=== PATIENT | male | born 1945 | race Caucasian/White ===

== ENCOUNTER 2021-01-27 10:26 | Day surgery (SDC) | payer MEDICARE ==
[~2021-01-27] VITALS: Ht 180.3 cm; Wt 119.0 kg
[2021-01-27] VITALS (11 sets, daily range): BP systolic 124–180; BP diastolic 47–96
[2021-01-27] MEDS ORDERED: LORazepam 0.5 MG tablet PO PRN (10:55)
[2021-01-27] MEDS ORDERED: normal saline 1,000 ML IV SCH (10:55)
[2021-01-27] MEDS ORDERED: diphenhydrAMINE 25mg capsule PO PRN (10:55)
[2021-01-27] MEDS ORDERED: nitroGLYCERIN 0.4mg SUBLingual tab SL PRN (10:55)
[2021-01-27 11:49] LABS: BASOPHILS # (AUTO) 0.1 X10'3 (0-0.2); EOSINOPHILS # (AUTO) 0.4 X10'3 (0-0.9); EOSINOPHILS % (AUTO) 4.4 % (0-6); HEMATOCRIT 40.4 % (42.0-52.0); HEMOGLOBIN 13.8 g/dl (14.0-17.9); LYMPHOCYTES # (AUTO) 2.6 X10'3 (1.1-4.8); LYMPHOCYTES % (AUTO) 31.5 % (21-51); MEAN CORPUSCULAR HEMOGLOBIN 28.3 PG (27.0-31.0); MEAN CORPUSCULAR HGB CONC 34.2 g/dL (33.0-36.5); MEAN CORPUSCULAR VOLUME 82.8 FL (78-98); MEAN PLATELET VOLUME 7.8 FL (7.4-10.4); MONOCYTES # (AUTO) 1.5 X10'3 (0-0.9); MONOCYTES % (AUTO) 18.4 % (2-12); NEUTROPHILS # (AUTO) 3.7 X10'3 (1.8-7.7); NEUTROPHILS % (AUTO) 44.7 % (42-75); PLATELET COUNT 344 X10'3 (140-440); RED BLOOD COUNT 4.88 X10'6 (4.70-6.10); RED CELL DISTRIBUTION WIDTH 16.7 % (11.5-14.5); WHITE BLOOD COUNT 8.4 X10'3 (4.5-11.0)
[2021-01-27 11:50] LABS: ALBUMIN 3.4 G/DL (3.4-5.0); ANION GAP 11 (8-16); BLOOD UREA NITROGEN 12 MG/DL (7-18); BUN/CREATININE RATIO 12.2 (5.4-32.0); CALCIUM 9.2 MG/DL (8.5-10.1); CHLORIDE 102 MMOL/L (99-107); CREATINE KINASE 89 U/L (39-308); CREATININE 0.98 MG/DL (0.60-1.10); GLUCOSE 160 MG/DL (70-104); SODIUM 137 MMOL/L (135-145); eGFR 74 ML/MIN
[2021-01-27 11:56] LABS: PARTIAL THROMBOPLASTIN TIME 29 SECONDS (22-32)
[2021-01-27] MEDS ORDERED: PRED5DRO23 EACHEYE (11:56)
[2021-01-27] MEDS ORDERED: SERT-153 PO (11:56)
[2021-01-27] MEDS ORDERED: MULT-1085 PO (11:56)
[2021-01-27] MEDS ORDERED: ALBU8.5H17 IH (11:56)
[2021-01-27] MEDS ORDERED: fentaNYL/PF 50MCG/1 ML 2ML syringe ONE ×2 (12:50→13:39)
[2021-01-27] MEDS ORDERED: midazolam 1 mg/ML 2ml injection ONE (12:50)
[2021-01-27] MEDS ORDERED: iohexol 350MG/ML 100ml bottle IV ONE (12:50)
[2021-01-27] MEDS ORDERED: iohexol 350 MG/ML 50ML vial IV ONE ×3 (12:50→13:55)
[2021-01-27] MEDS ORDERED: nitroGLYCERIN-Tridil 50MG/D5W 250 ML IV ONE (12:50)
[2021-01-27] MEDS ORDERED: LIDOcaine 1% (10mg/ml)w/preservative injection 20ml MDV ONE (12:51)
[2021-01-27 12:59] LABS: TOTAL CELLS COUNTED 100
[2021-01-27 13:00] LABS: ANISOCYTOSIS 1+; PLATELET ESTIMATE NORMAL
[2021-01-27] MEDS ORDERED: HYDROcodone/acetaminophen 5mg/325mg tablet PO PRN (14:35)
[2021-01-27] MEDS ORDERED: ondansetron/PF 4mg/2ml inj IV PRN (14:35)
[2021-01-27] MEDS ORDERED: HYDROcodone/acetaminophen 10/325mg tab PO PRN (14:35)
[2021-01-27] MEDS ORDERED: OXAZEpam 15mg capsule PO PRN (14:35)
[2021-01-27] MEDS ORDERED: proCHLORperazine 10 MG/2 ml inj IV PRN (14:35)
[2021-02-01 12:00] LABS: ALLEN'S TEST POSITIVE
[2021-02-01 12:02] LABS: ABG BASE EXCESS -2.1 mmol/L (-2.0-2.0); ABG HCO3 22.2 mmol/L (22.0-26.0); ABG PCO2 (T) 36.7 mmHg (35.0-48.0); ABG PO2 (T) 67.4 mmHg (75.0-100.0); FCOHb 0.4 % (0.0-3.9); FMetHb 0.4 % (0.0-1.5); FO2Hb 93.7 % (94-97); TOTAL HEMOGLOBIN 14.2 G/dl (14.0-18.0)
[2021-02-01 12:03] LABS: ABG OXYGEN SATURATION 94.5 % (94-97)
== END 2021-01-27 20:15 | disposition home or self-care (01) ==
LOC: SSTAY O 10:26
PROVIDERS: ATTEND Internal Medicine Cardiovascular Disease
DX: R94.39 Abnormal result of other cardiovascular function study (principal); I25.10 Atherosclerotic heart disease of native coronary artery without angina pectoris; I10 Essential (primary) hypertension; F32.9 Major depressive disorder, single episode, unspecified; E78.5 Hyperlipidemia, unspecified; M19.90 Unspecified osteoarthritis, unspecified site; J44.9 Chronic obstructive pulmonary disease, unspecified; E66.9 Obesity, unspecified; Z68.36 Body mass index [BMI] 36.0-36.9, adult; Z79.899 Other long term (current) drug therapy; Z79.01 Long term (current) use of anticoagulants; Z88.5 Allergy status to narcotic agent; Z90.49 Acquired absence of other specified parts of digestive tract; Z98.890 Other specified postprocedural states; Z86.16 Personal history of COVID-19
CPT/HCPCS: 36415; 36600; 71046; 80048; 82550; 82803; 85018; 85025; 85610; 85730; 86920; 93005; 93458; 93567; 93880; 94010; 99152; 99153; C1760; C1769; J1644; J2001; J2250; J3010; J7030; Q0163; Q9967; 85007; 86885; 86900; 86901; 93459; A4620; A6258; J3490

== ENCOUNTER 2021-02-01 08:00 | Outpatient (CLI) | payer MEDICARE ==
[~2021-02-01] VITALS: Ht 180.3 cm; Wt 118.8 kg
[2021-02-01 05:50] VITALS: BP 140/74
[2021-02-01 07:02] VITALS: BP_SYST 140
[~2021-02-01 08:00] MED LIST: ALBU8.5H17 IH; Insulin Reg/NS 100units/100mL 100 ML IV SCH; MULT-1085 PO; PRED5DRO23 EACHEYE; SERT-153 PO; ceFAZolin 1000mg inj ONE; ceFAZolin 2gm in dextrose, iso 50 ML IV ONE; dextrose 50%-water 50ml dispensing syringe IV PRN; epiNEPHrine 1 mg/ml inj ONE; famotidine 20mg tablet PO ONE; gabapentin 400mg capsule PO ONE; insulin Lispro (HumaLOG) vial - multi-dose SQ PRN; ipratropium/albuterol 3ml nebule NEB PRN; metoprolol tartrate 12.5mg (1/2 tablet) PO ONE; mupirocin 2% nasal ointment 1gm UD NS SCH; ringers solution, lacted 1,000 ML IV SCH; vancomycin 1,500 MG in NS 300ml IV soln IV ONE
[2021-02-01] MEDS ORDERED: LORazepam 2 mg/ml vial IV ONE (08:25)
== END 2021-02-01 23:00 | disposition home or self-care (01) ==
LOC: LAB 08:00 → EDSTATUS 09:30 → LAB 23:00
DX: Z01.812 Encounter for preprocedural laboratory examination (principal); U07.1 COVID-19
CPT/HCPCS: 36415; 86885; 86900; 86901; 86920; 87635; 93005; 93971; J0171; J0690; J1815; J3370; J7040; J7120

== ENCOUNTER 2021-02-22 08:00 | Inpatient (IN) | payer MEDICARE ==
[2021-02-18 14:34] LABS: BASOPHILS # (AUTO) 0.1 X10'3 (0-0.2); BASOPHILS % (AUTO) 1.4 % (0-1); EOSINOPHILS # (AUTO) 0.3 X10'3 (0-0.9); EOSINOPHILS % (AUTO) 2.9 % (0-6); LYMPHOCYTES # (AUTO) 2.5 X10'3 (1.1-4.8); LYMPHOCYTES % (AUTO) 25.6 % (21-51); MEAN CORPUSCULAR HEMOGLOBIN 28.5 PG (27.0-31.0); MEAN CORPUSCULAR HGB CONC 34.3 g/dL (33.0-36.5); MEAN CORPUSCULAR VOLUME 83.1 FL (78-98); MEAN PLATELET VOLUME 7.7 FL (7.4-10.4); MONOCYTES # (AUTO) 1.5 X10'3 (0-0.9); MONOCYTES % (AUTO) 15.1 % (2-12); NEUTROPHILS # (AUTO) 5.3 X10'3 (1.8-7.7); PRE OP HEMATOCRIT 42.3 % (42.0-52.0); PRE OP HEMOGLOBIN 14.5 g/dL (14.0-17.9); PRE OP PLATELET COUNT 358 X10'3 (140-440); RED BLOOD COUNT 5.09 X10'6 (4.70-6.10); RED CELL DISTRIBUTION WIDTH 16.8 % (11.5-14.5)
[2021-02-18 14:51] LABS: PRE OP INR 1.1 INR; PRE OP PROTIME 10.9 SECONDS (9.0-12.0)
[2021-02-18 14:52] LABS: ALBUMIN 3.5 G/DL (3.4-5.0); ALBUMIN/GLOBULIN RATIO 0.6 (1.1-1.5); ALKALINE PHOSPHATASE 65 IU/L (46-116); BLOOD UREA NITROGEN 19 MG/DL (7-18); BUN/CREATININE RATIO 18.3 (5.4-32.0); CALCIUM 9.4 MG/DL (8.5-10.1); CHLORIDE 97 MMOL/L (99-107); CREATININE 1.04 MG/DL (0.60-1.10); PRE OP ALT 54 U/L (30-65); PRE OP ANION GAP 12 (8-16); PRE OP AST 38 U/L (10-37); PRE OP BILIRUB, TOTAL 0.6 MG/DL (0.0-1.0); PRE OP POTASSIUM 3.8 MMOL/L (3.4-5.1); PRE OP SODIUM 131 MMOL/L (135-145); TOTAL CARBON DIOXIDE 22.3 MMOL/L (24-32); TOTAL PROTEIN 9.7 G/DL (6.4-8.2); eGFR 69 ML/MIN
[2021-02-18 14:54] LABS: PRE OP GLUCOSE 201 MG/DL (70-104)
[2021-02-18 15:02] LABS: HEMOGLOBIN A1C 7.4 % (4.5-6.2)
[2021-02-18 15:11] LABS: CLARITY,URINE CLEAR (Clear); COLOR,URINE YELLOW (Yellow); GLUCOSE, URINE NEGATIVE (Neg); KETONES,URINE NEGATIVE (Neg); LEUKOCYTE ESTERASE ,URINE NEGATIVE (Neg); NITRITES, URINE NEGATIVE (Neg); OCCULT BLOOD,URINE NEGATIVE (Neg); PROTEIN,URINE NEGATIVE (Neg); UA COLLECTION TYPE CLN CATCH MIDSTREAM; UROBILINOGEN,URINE 0.2 E.U/dL (0.2-1.0)
[2021-02-18 15:52] LABS: TOTAL CELLS COUNTED 100
[2021-02-18 15:53] LABS: ANISOCYTOSIS 1+; LARGE PLATELETS FEW; PLATELET ESTIMATE NORMAL
[~2021-02-22] VITALS: Ht 180.3 cm; Wt 122.3 kg
[2021-02-22 06:44] LABS: ABG HCO3 24.5 mmol/L (22.0-26.0); ABG OXYGEN SATURATION 96.6 % (94-97); ABG PCO2 (T) 32.5 mmHg (35.0-48.0); ABG PO2 (T) 73.4 mmHg (75.0-100.0); ALLEN'S TEST POSITIVE; FCOHb 1.1 % (0.0-3.9); FMetHb 0.2 % (0.0-1.5); FO2Hb 95.3 % (94-97); TOTAL HEMOGLOBIN 15.3 G/dl (14.0-18.0)
[~2021-02-22 08:00] MED LIST changes: +DOCUMENT DATE & TIME OF BETA-BLOCKER PO ONE; +LORazepam 2 mg/ml vial IV PRN; +VANCOMYCIN INJ 1000 MG in NORMAL SALINE 250ml IV.SOLN IV ONE; +albuterol 2.5 MG/3 ML nebule NEB ONE; -ceFAZolin 1000mg inj ONE; -epiNEPHrine 1 mg/ml inj ONE; +gabapentin 300mg capsule PO ONE; -gabapentin 400mg capsule PO ONE; -insulin Lispro (HumaLOG) vial - multi-dose SQ PRN; +insulin Lispro (HumaLOG) vial - multi-dose SQ SCH; -ipratropium/albuterol 3ml nebule NEB PRN; -vancomycin 1,500 MG in NS 300ml IV soln IV ONE
[2021-03-01] VITALS (19 sets, daily range): BP systolic 98–149; BP diastolic 46–75
[2021-03-01] MEDS ORDERED: LORazepam 2 mg/ml vial IV PRN (05:30)
[2021-03-01] MEDS ORDERED: famotidine 20mg tablet PO ONE (05:30)
[2021-03-01] MEDS ORDERED: albuterol 2.5 MG/3 ML nebule NEB ONE (05:30)
[2021-03-01] MEDS ORDERED: vancomycin 1,500 MG in NS 300ml IV soln IV ONE (05:30)
[2021-03-01] MEDS ORDERED: Insulin Reg/NS 100units/100mL 100 ML IV SCH (05:30)
[2021-03-01] MEDS ORDERED: metoprolol tartrate 12.5mg (1/2 tablet) PO ONE (05:30)
[2021-03-01] MEDS ORDERED: gabapentin 300mg capsule PO ONE (05:30)
[2021-03-01] MEDS ORDERED: ringers solution, lacted 1,000 ML IV SCH (05:30)
[2021-03-01] MEDS ORDERED: mupirocin 2% nasal ointment 1gm UD NS SCH (05:30)
[2021-03-01] MEDS ORDERED: ceFAZolin 2gm in dextrose, iso 50 ML IV ONE (05:30)
[2021-03-01] MEDS ORDERED: ceFAZolin 1000mg inj ONE (05:39)
[2021-03-01] MEDS ORDERED: epiNEPHrine 1 mg/ml inj ONE ×2 (05:39→06:27)
[2021-03-01] MEDS ORDERED: LIDOcaine 2% (20mg/ml) 5ml vial ONE (07:39)
[2021-03-01] MEDS ORDERED: propofol inj 20 ML IV ONE (07:39)
[2021-03-01] MEDS ORDERED: fentaNYL /PF 50mcg/ml 5ml ampule ONE ×2 (07:39)
[2021-03-01] MEDS ORDERED: MIDAZolam 1mg/ml 10ml vial ONE (07:39)
[2021-03-01] MEDS: ipratropium/albuterol 3ml nebule IH SCH ×5 (07:40→22:50)
[2021-03-01] MEDS ORDERED: rocuronium 10mg/ml inj IV ONE ×3 (07:40)
[2021-03-01] MEDS ORDERED: papaverine 30 mg/ml 2ml inj. ONE (08:00)
[2021-03-01] MEDS ORDERED: sodium bicarbonate (8.4%) 1 mEq/ml syringe ONE (08:00)
[2021-03-01] MEDS ORDERED: heparin 10,000 units/1 ML INJ ONE (08:00)
[2021-03-01] MEDS ORDERED: heparin 10,000 units/1 ML INJ IR ONE (08:00)
[2021-03-01] MEDS ORDERED: phenylephrine 10mg/ml inj. ONE (08:00)
[2021-03-01] MEDS ORDERED: methylPREDNISolone sod succ 1000mg vial ONE (08:00)
[2021-03-01] MEDS ORDERED: aminocaproic acid 250 MG/1 ML inj. ONE (08:00)
[2021-03-01] MEDS ORDERED: papaverine 30 mg/ml 2ml inj. IA ONE (08:00)
[2021-03-01] MEDS ORDERED: albumin (Human) 5% 250ml 250 ML IV ONE ×2 (08:38→08:41)
[2021-03-01] MEDS ORDERED: dexamethasone sod phosphate 4mg/ml inj. ONE ×2 (08:41→08:59)
[2021-03-01] MEDS ORDERED: ePHEDrine 50MG/ML INJ. ONE (08:59)
[2021-03-01] MEDS ORDERED: Neutra Phos packet PO PRN (10:05)
[2021-03-01] MEDS ORDERED: acetaminophen 325mg tablet PO PRN ×2 (10:05)
[2021-03-01] MEDS ORDERED: potassium Cl 20 mEq SR tablet PO PRN (10:05)
[2021-03-01] MEDS ORDERED: morphine 4 MG/ML inj SYRINge IV PRN (10:05)
[2021-03-01] MEDS ORDERED: sodium chloride 0.45% 1,000 ML IV SCH (10:05)
[2021-03-01] MEDS ORDERED: sodium phosphate inj. 30 MMOL in dextrose 5%-water 250 ML IV PRN (10:05)
[2021-03-01] MEDS: Insulin Reg/NS 100units/100mL 100 ML IV SCH ×2 (10:05→20:49)
[2021-03-01] MEDS ORDERED: potassium Cl 40MEQ/1/2NS 520ml 520 ML IV PRN (10:05)
[2021-03-01] MEDS ORDERED: pantoprazole 40 MG vial IV ONE (10:05)
[2021-03-01] MEDS ORDERED: magnesium 4gm in 100ml NS 100 ML IV PRN (10:05)
[2021-03-01] MEDS ORDERED: insulin glargine (Lantus) pen - multi-dose SQ PRN (10:05)
[2021-03-01] MEDS ORDERED: niCARDipine-NS 40mg/200ml IVPB 200 ML IV PRN (10:05)
[2021-03-01] MEDS ORDERED: potassium Cl 20mEq/100mL bag 100 ML IV PRN (10:05)
[2021-03-01] MEDS ORDERED: metoclopramide 5 mg/ml inj IV PRN (10:05)
[2021-03-01] MEDS ORDERED: sodium phosphate inj. 15 MMOL in dextrose 5%-water 250 ML IV PRN (10:05)
[2021-03-01] MEDS ORDERED: bisacodyl 10mg suppository rectal RC PRN (10:05)
[2021-03-01] MEDS ORDERED: dextrose 50%-water 50ml dispensing syringe IV PRN (10:05)
[2021-03-01] MEDS ORDERED: magnesium citrate 296ml oral solution PO PRN (10:05)
[2021-03-01] MEDS ORDERED: albumin (Human) 5% 250ml 250 ML IV PRN (10:05)
[2021-03-01] MEDS ORDERED: potassium CL 10mEq/100ml bag 100 ML IV PRN (10:05)
[2021-03-01] MEDS ORDERED: ondansetron/PF 4mg/2ml inj IV PRN (10:05)
[2021-03-01] MEDS ORDERED: nitroGLYCERIN-Tridil 50MG/D5W 250 ML IV SCH (10:05)
[2021-03-01] MEDS ORDERED: mineral oil 133ml enema RC PRN (10:05)
[2021-03-01] MEDS ORDERED: magnesium hydroxide 30ml (MOM) UD suspension PO PRN (10:05)
[2021-03-01] MEDS ORDERED: potassium Cl 40MEQ/250ML bag 250 ML IV PRN (10:05)
[2021-03-01] MEDS ORDERED: NORepinephrine 8mg/ 250ml NS 250 ML IV PRN (10:05)
[2021-03-01 11:00] LABS: BASOPHILS # (AUTO) 0.1 X10'3 (0-0.2); BASOPHILS % (AUTO) 0.5 % (0-1); EOSINOPHILS # (AUTO) 0.1 X10'3 (0-0.9); EOSINOPHILS % (AUTO) 0.5 % (0-6); HEMATOCRIT 35.8 % (42.0-52.0); HEMOGLOBIN 11.9 g/dl (14.0-17.9); LYMPHOCYTES # (AUTO) 1.8 X10'3 (1.1-4.8); LYMPHOCYTES % (AUTO) 8.5 % (21-51); MEAN CORPUSCULAR HEMOGLOBIN 27.8 PG (27.0-31.0); MEAN CORPUSCULAR HGB CONC 33.3 g/dL (33.0-36.5); MEAN CORPUSCULAR VOLUME 83.5 FL (78-98); MEAN PLATELET VOLUME 7.7 FL (7.4-10.4); MONOCYTES # (AUTO) 1.2 X10'3 (0-0.9); MONOCYTES % (AUTO) 5.7 % (2-12); NEUTROPHILS % (AUTO) 84.8 % (42-75); PLATELET COUNT 290 X10'3 (140-440); RED BLOOD COUNT 4.28 X10'6 (4.70-6.10); RED CELL DISTRIBUTION WIDTH 16.2 % (11.5-14.5); WHITE BLOOD COUNT 21.2 X10'3 (4.5-11.0)
[2021-03-01 11:05] LABS: PARTIAL THROMBOPLASTIN TIME 31 SECONDS (22-32)
[2021-03-01 11:08] LABS: ALANINE AMINOTRANSFERASE 41 U/L (12-78); ALBUMIN 2.9 G/DL (3.4-5.0); ALBUMIN/GLOBULIN RATIO 0.6 (1.1-1.5); ALKALINE PHOSPHATASE 50 IU/L (46-116); ANION GAP 10 (8-16); ASPARTATE AMINO TRANSFERASE 31 U/L (10-37); BILIRUBIN,TOTAL 0.4 MG/DL (0.1-1.0); BLOOD UREA NITROGEN 11 MG/DL (7-18); CALCIUM 7.9 MG/DL (8.5-10.1); CHLORIDE 105 MMOL/L (99-107); GLUCOSE 218 MG/DL (70-104); POTASSIUM 3.7 MMOL/L (3.5-5.1); SODIUM 139 MMOL/L (135-145); TOTAL CARBON DIOXIDE 24.4 MMOL/L (24-32); TOTAL PROTEIN 7.6 G/DL (6.4-8.2); eGFR 72 ML/MIN
[2021-03-01 11:09] LABS: MAGNESIUM 1.7 MG/DL (1.5-2.4); PHOSPHORUS 3.4 MG/DL (2.3-4.5)
[2021-03-01] MEDS: morphine 4 MG/ML inj SYRINge IV PRN (11:15)
[2021-03-01 11:30] LABS: PLATELET ESTIMATE NORMAL; TOTAL CELLS COUNTED 100
[2021-03-01 11:31] LABS: ANISOCYTOSIS 1+
--- NOTE | 2021-03-01 13:01 | NUR ---
CABG consult: Pt s/p CABG x2 today. Would benefit from nutrition therapy education once more stable this admit. Will continue to monitor. Addendum: 03/01/21 at [address] Amended: Links added.
[2021-03-01] MEDS: gabapentin 300mg capsule PO SCH ×2 (13:03→20:39)
[2021-03-01] MEDS: ketorolac tromethamine 15mg/ml inj. IV SCH ×2 (14:23→20:39)
[2021-03-01] MEDS: magnesium 2GM in 50ml NS 50 ML IV PRN (14:42)
[2021-03-01] MEDS: ceFAZolin/D5W- 1GM premix 50 ML IV SCH (15:56)
[2021-03-01 17:09] LABS: BASOPHILS % (AUTO) 0.2 % (0-1); EOSINOPHILS % (AUTO) 0.1 % (0-6); HEMOGLOBIN 11.4 g/dl (14.0-17.9); LYMPHOCYTES # (AUTO) 0.5 X10'3 (1.1-4.8); LYMPHOCYTES % (AUTO) 2.8 % (21-51); MEAN CORPUSCULAR HEMOGLOBIN 27.9 PG (27.0-31.0); MEAN CORPUSCULAR HGB CONC 33.4 g/dL (33.0-36.5); MEAN CORPUSCULAR VOLUME 83.6 FL (78-98); MEAN PLATELET VOLUME 7.6 FL (7.4-10.4); MONOCYTES # (AUTO) 1.4 X10'3 (0-0.9); MONOCYTES % (AUTO) 7.9 % (2-12); NEUTROPHILS # (AUTO) 15.5 X10'3 (1.8-7.7); PLATELET COUNT 302 X10'3 (140-440); RED BLOOD COUNT 4.07 X10'6 (4.70-6.10); RED CELL DISTRIBUTION WIDTH 16.1 % (11.5-14.5); WHITE BLOOD COUNT 17.4 X10'3 (4.5-11.0)
[2021-03-01 17:32] LABS: ALBUMIN 3.1 G/DL (3.4-5.0); ANION GAP 10 (8-16); BLOOD UREA NITROGEN 9 MG/DL (7-18); BUN/CREATININE RATIO 9.1 (5.4-32.0); CALCIUM 7.9 MG/DL (8.5-10.1); CHLORIDE 106 MMOL/L (99-107); CREATININE 0.99 MG/DL (0.60-1.10); GLUCOSE 147 MG/DL (70-104); MAGNESIUM 2.9 MG/DL (1.5-2.4); PHOSPHORUS 2.9 MG/DL (2.3-4.5); POTASSIUM 4.3 MMOL/L (3.5-5.1); SODIUM 139 MMOL/L (135-145); TOTAL CARBON DIOXIDE 23.1 MMOL/L (24-32); eGFR 73 ML/MIN
--- NOTE | 2021-03-01 18:10 | NUR ---
Patient in room ICU 2041. I have received report from Penny FARIA and had the opportunity to ask questions and assume patient care.
[2021-03-01] MEDS: HYDROcodone/acetaminophen 10/325mg tab PO PRN (18:57)
[2021-03-01] MEDS: vancomycin/NS 1 GM ADD-VANTAGE 250 ML IV SCH (20:38)
[2021-03-01] MEDS: sennosides/docusate sodium tablet PO SCH (20:39)
[2021-03-01] MEDS: atorvastatin 10mg tablet PO SCH (20:39)
[2021-03-01] MEDS: mupirocin 2% nasal ointment 1gm UD NS SCH (20:39)
[2021-03-02] VITALS (24 sets, daily range): BP systolic 91–159; BP diastolic 41–88
[2021-03-02] MEDS: ceFAZolin/D5W- 1GM premix 50 ML IV SCH ×4 (00:45→23:59)
[2021-03-02] MEDS: ketorolac tromethamine 15mg/ml inj. IV SCH ×2 (02:21→07:59)
[2021-03-02] MEDS: ipratropium/albuterol 3ml nebule IH SCH ×6 (03:11→23:59)
[2021-03-02 03:29] LABS: BASOPHILS # (AUTO) 0.1 X10'3 (0-0.2); BASOPHILS % (AUTO) 0.4 % (0-1); EOSINOPHILS % (AUTO) 0 % (0-6); HEMATOCRIT 34.2 % (42.0-52.0); HEMOGLOBIN 11.5 g/dl (14.0-17.9); LYMPHOCYTES % (AUTO) 6.6 % (21-51); MEAN CORPUSCULAR HEMOGLOBIN 28.1 PG (27.0-31.0); MEAN CORPUSCULAR HGB CONC 33.7 g/dL (33.0-36.5); MEAN CORPUSCULAR VOLUME 83.5 FL (78-98); MEAN PLATELET VOLUME 8.3 FL (7.4-10.4); MONOCYTES # (AUTO) 1.9 X10'3 (0-0.9); MONOCYTES % (AUTO) 12.8 % (2-12); NEUTROPHILS # (AUTO) 12.1 X10'3 (1.8-7.7); NEUTROPHILS % (AUTO) 80.2 % (42-75); PLATELET COUNT 305 X10'3 (140-440); RED BLOOD COUNT 4.09 X10'6 (4.70-6.10); RED CELL DISTRIBUTION WIDTH 16.3 % (11.5-14.5); WHITE BLOOD COUNT 15.1 X10'3 (4.5-11.0)
[2021-03-02 03:52] LABS: ALANINE AMINOTRANSFERASE 38 U/L (12-78); ALBUMIN/GLOBULIN RATIO 0.7 (1.1-1.5); ALKALINE PHOSPHATASE 44 IU/L (46-116); ANION GAP 9 (8-16); ASPARTATE AMINO TRANSFERASE 44 U/L (10-37); BILIRUBIN,TOTAL 0.6 MG/DL (0.1-1.0); BLOOD UREA NITROGEN 11 MG/DL (7-18); BUN/CREATININE RATIO 10.8 (5.4-32.0); CALCIUM 8.1 MG/DL (8.5-10.1); CHLORIDE 104 MMOL/L (99-107); CREATININE 1.02 MG/DL (0.60-1.10); GLUCOSE 164 MG/DL (70-104); MAGNESIUM 2.5 MG/DL (1.5-2.4); PHOSPHORUS 3.2 MG/DL (2.3-4.5); SODIUM 136 MMOL/L (135-145); TOTAL CARBON DIOXIDE 23.2 MMOL/L (24-32); TOTAL PROTEIN 7.6 G/DL (6.4-8.2); eGFR 71 ML/MIN
[2021-03-02 03:54] LABS: POTASSIUM 4.7 MMOL/L (3.5-5.1)
[2021-03-02] MEDS: HYDROcodone/acetaminophen 10/325mg tab PO PRN ×4 (06:06→17:09)
--- NOTE | 2021-03-02 06:22 | NUR ---
Problems reprioritized. Patient report given, questions answered & plan of care reviewed with Alisa FARIA.
[2021-03-02] MEDS: pantoprazole 40mg Tablet.DR PO SCH (07:52)
[2021-03-02] MEDS: aspirin 325mg tablet, delayed-release (Ecotrin) PO SCH (07:52)
[2021-03-02] MEDS: vancomycin/NS 1 GM ADD-VANTAGE 250 ML IV SCH ×2 (07:57→19:00)
[2021-03-02] MEDS: metoprolol tartrate 12.5mg (1/2 tablet) PO SCH ×2 (07:57→18:59)
[2021-03-02] MEDS: mupirocin 2% nasal ointment 1gm UD NS SCH ×2 (08:02→19:00)
[2021-03-02] MEDS: gabapentin 300mg capsule PO SCH ×3 (08:02→20:17)
[2021-03-02] MEDS: sennosides/docusate sodium tablet PO SCH ×2 (08:05→19:00)
[2021-03-02] MEDS: insulin glargine (Lantus) pen - multi-dose SQ SCH (08:30)
--- NOTE | 2021-03-02 14:22 | NUR ---
CABG consult: Pt s/p CABG x2 03/01. Provided pt w/ written and verbal nutrition therapy education w/ RD contact info. Pt receptive of information Addendum: 03/02/21 at [address] Amended: Links added.
--- NOTE | 2021-03-02 18:30 | NUR ---
Patient in room ICU 2041. I have received report from BIENVENIDO Cuellar and had the opportunity to ask questions and assume patient care.
--- NOTE | 2021-03-02 18:38 | NUR ---
Problems reprioritized. Patient report given, questions answered & plan of care reviewed with Rosalinda FARIA.
--- NOTE | 2021-03-02 18:51 | NUR ---
Called Paloma KENNEDY in regards to patient going into a.fib with a HR ranging between 120s and 140s. voicemail left, awaiting a call back.
[2021-03-02] MEDS: insulin Lispro (HumaLOG) vial - multi-dose SQ SCH (19:32)
[2021-03-02] MEDS ORDERED: amiodarone 150mg/dext, iso-os 100 ML IV ONE (19:35)
--- NOTE | 2021-03-02 19:36 | NUR ---
Called MD Dow a second time and he answered, he was notified of patient being in a fib in 120s-140s. order for amio bolus and gtt received.
[2021-03-02] MEDS: amiodarone/D5 360MG/200ML BAG 200 ML IV SCH (19:55)
[2021-03-02] MEDS: morphine 4 MG/ML inj SYRINge IV PRN (20:18)
[2021-03-02] MEDS: atorvastatin 10mg tablet PO SCH (20:18)
[2021-03-03] VITALS (18 sets, daily range): BP systolic 84–140; BP diastolic 0–75
[2021-03-03] MEDS: amiodarone/D5 360MG/200ML BAG 200 ML IV SCH ×4 (01:39→19:51)
[2021-03-03] MEDS: HYDROcodone/acetaminophen 10/325mg tab PO PRN ×2 (02:08→20:35)
[2021-03-03 02:57] LABS: BASOPHILS # (AUTO) 0.1 X10'3 (0-0.2); BASOPHILS % (AUTO) 0.7 % (0-1); EOSINOPHILS # (AUTO) 0.1 X10'3 (0-0.9); EOSINOPHILS % (AUTO) 0.7 % (0-6); HEMATOCRIT 33.4 % (42.0-52.0); HEMOGLOBIN 11.3 g/dl (14.0-17.9); LYMPHOCYTES # (AUTO) 2.4 X10'3 (1.1-4.8); LYMPHOCYTES % (AUTO) 13.3 % (21-51); MEAN CORPUSCULAR HEMOGLOBIN 28.4 PG (27.0-31.0); MEAN CORPUSCULAR HGB CONC 33.8 g/dL (33.0-36.5); MEAN CORPUSCULAR VOLUME 83.8 FL (78-98); MEAN PLATELET VOLUME 8.1 FL (7.4-10.4); MONOCYTES # (AUTO) 3.6 X10'3 (0-0.9); MONOCYTES % (AUTO) 19.8 % (2-12); NEUTROPHILS # (AUTO) 11.7 X10'3 (1.8-7.7); NEUTROPHILS % (AUTO) 65.5 % (42-75); PLATELET COUNT 343 X10'3 (140-440); RED BLOOD COUNT 3.99 X10'6 (4.70-6.10); RED CELL DISTRIBUTION WIDTH 16.6 % (11.5-14.5); WHITE BLOOD COUNT 17.9 X10'3 (4.5-11.0)
[2021-03-03] MEDS: ipratropium/albuterol 3ml nebule IH SCH ×6 (03:03→23:46)
[2021-03-03 03:21] LABS: ALBUMIN 2.8 G/DL (3.4-5.0); ANION GAP 10 (8-16); BLOOD UREA NITROGEN 18 MG/DL (7-18); BUN/CREATININE RATIO 15.5 (5.4-32.0); CALCIUM 8.2 MG/DL (8.5-10.1); CHLORIDE 102 MMOL/L (99-107); CREATININE 1.16 MG/DL (0.60-1.10); GLUCOSE 196 MG/DL (70-104); MAGNESIUM 2.1 MG/DL (1.5-2.4); PHOSPHORUS 3.5 MG/DL (2.3-4.5); POTASSIUM 4.7 MMOL/L (3.5-5.1); SODIUM 136 MMOL/L (135-145); TOTAL CARBON DIOXIDE 24.4 MMOL/L (24-32); eGFR 61 ML/MIN
[2021-03-03] MEDS: magnesium 2GM in 50ml NS 50 ML IV PRN (04:14)
[2021-03-03 04:25] LABS: PLATELET ESTIMATE NORMAL; TOTAL CELLS COUNTED 100
[2021-03-03 04:26] LABS: ANISOCYTOSIS 1+
--- NOTE | 2021-03-03 06:13 | NUR ---
Problems reprioritized. Patient report given, questions answered & plan of care reviewed with BIENVENIDO Olmedo.
[2021-03-03] MEDS: sennosides/docusate sodium tablet PO SCH ×2 (06:51→20:34)
[2021-03-03] MEDS: aspirin 325mg tablet, delayed-release (Ecotrin) PO SCH (06:51)
[2021-03-03] MEDS: pantoprazole 40mg Tablet.DR PO SCH (06:52)
[2021-03-03] MEDS: metoprolol tartrate 12.5mg (1/2 tablet) PO SCH ×2 (06:52→20:34)
[2021-03-03] MEDS: gabapentin 300mg capsule PO SCH (06:52)
[2021-03-03] MEDS: mupirocin 2% nasal ointment 1gm UD NS SCH (06:52)
[2021-03-03] MEDS: insulin glargine (Lantus) pen - multi-dose SQ SCH (06:58)
[2021-03-03] MEDS: furosemide 40mg/4ml inj IV SCH (08:09)
[2021-03-03] MEDS ORDERED: potassium Cl 20mEq/100mL bag 100 ML IV PRN (08:15)
[2021-03-03] MEDS ORDERED: potassium Cl 40MEQ/1/2NS 520ml 520 ML IV PRN (08:15)
[2021-03-03] MEDS ORDERED: potassium Cl 40MEQ/250ML bag 250 ML IV PRN (08:15)
[2021-03-03] MEDS ORDERED: potassium CL 10mEq/100ml bag 100 ML IV PRN (08:15)
[2021-03-03] MEDS ORDERED: magnesium 4gm in 100ml NS 100 ML IV PRN (08:15)
[2021-03-03] MEDS ORDERED: magnesium 2GM in 50ml NS 50 ML IV PRN (08:15)
[2021-03-03] MEDS ORDERED: potassium Cl 20 mEq SR tablet PO PRN (08:15)
--- NOTE | 2021-03-03 09:24 | NUR ---
CABG consult: Addressed in previous note. Addendum: 03/03/21 at [address] Amended: Links added.
[2021-03-03] MEDS ORDERED: ondansetron 4mg rapidly disintigrating tab PO PRN (13:00)
[2021-03-03] MEDS: insulin Lispro (HumaLOG) vial - multi-dose SQ SCH (13:42)
[2021-03-03] MEDS: magnesium Cl slow-release 64mg tablet PO SCH (20:33)
[2021-03-03] MEDS: potassium Cl 20 mEq SR tablet PO SCH (20:34)
[2021-03-03] MEDS: sertraline 50mg tablet PO SCH (20:35)
[2021-03-03] MEDS: atorvastatin 10mg tablet PO SCH (20:35)
--- NOTE | 2021-03-03 20:48 | NUR ---
Hospitalist paged about patient irregular HR .PAGER ID: [phone] MESSAGE: barby Brooks! Patient Pope Caio Kulkarni Jr. has converted back to A fib up 136 . Amio gtts was titrated down to 0.5mcg/min. Would you like to titrate it back to 1.0mcg/min? BIENVENIDO Lofton [phone].
--- NOTE | 2021-03-03 21:52 | NUR ---
patient remain AFIB>120. Amio gtts running at 0.5mcg/min.
--- NOTE | 2021-03-03 22:04 | NUR ---
Second page sent to Dr. Brooks. PAGER ID: [phone] MESSAGE: Ilan Brooks patient Caio Ramirez [facility] room 3019. HR has been AFIB 120-130 for over an hour. Patient last BP 133/65. Amio gtts @0.5mcg/min. 2000 meds were given. Please advise! Thanks Kirsty FARIA [phone]
--- NOTE | 2021-03-03 22:15 | NUR ---
Dr. Brooks pager number was wrong. Page number updated by soft crab shedder. New page send to Hospitalist. PAGER ID: [phone] Sd Dr. Brooks patient Ramirez, [facility] room 3019. HR has been AFIB 120-130 for over an hour. Patient last BP 133/65. Amio gtts @0.5mcg/min. 2000 meds were given. Please advise! Thanks Kirsty FARIA [phone]
--- NOTE | 2021-03-03 22:40 | NUR ---
Another page sent to PAGER ID: [phone] MESSAGE: Ilan Lofton from [facility]. I had also paged you about patient Ramirez in room 3019 irregular Heart Beat. I need your help please. patient has been in Afib 120-130 for 2hours now. Thanks Kirsty [phone]
[2021-03-03] MEDS ORDERED: diltiazem 5mg/ml 5ml inj. IV ONE (22:50)
[2021-03-04] VITALS (11 sets, daily range): BP systolic 114–157; BP diastolic 63–80
--- NOTE | 2021-03-04 00:33 | NUR ---
PAGE SENT TO DR. GLASS TO INFORM ABOUT PATIENT IN STILL IN AFIB. PATIENT HAD A 2 SEC PAUSE. HOSPITALIST MADE AWARE AND WANTS TO CONTINUE MONITOR PATIENT. HOSPITALIST STATES "BUSINESS SUPPORT MANAGER NEEDS TO BE CONTACTED IN THE AM". PATIENT IS CURRENTLY ON AMIO GTTS 0.5MCG/MIN. MOBILE MONITOR ON. WILL CONTINUE Q1HR VS AND FREQUENT ROUNDING
[2021-03-04] MEDS: amiodarone/D5 360MG/200ML BAG 200 ML IV SCH (01:55)
[2021-03-04] MEDS: ipratropium/albuterol 3ml nebule IH SCH ×6 (03:46→23:00)
[2021-03-04] MEDS ORDERED: diltiazem 5mg/ml 5ml inj. IV ONE (06:05)
--- NOTE | 2021-03-04 06:15 | NUR ---
Patient in room PCU 3019. I have received report from Kirsty FARIA and had the opportunity to ask questions and assume patient care.
[2021-03-04 07:02] LABS: BASOPHILS # (AUTO) 0.1 X10'3 (0-0.2); BASOPHILS % (AUTO) 0.9 % (0-1); EOSINOPHILS # (AUTO) 0.1 X10'3 (0-0.9); EOSINOPHILS % (AUTO) 1.3 % (0-6); HEMATOCRIT 34.8 % (42.0-52.0); HEMOGLOBIN 11.8 g/dl (14.0-17.9); LYMPHOCYTES # (AUTO) 2.5 X10'3 (1.1-4.8); LYMPHOCYTES % (AUTO) 22.4 % (21-51); MEAN CORPUSCULAR HEMOGLOBIN 28.4 PG (27.0-31.0); MEAN CORPUSCULAR VOLUME 83.5 FL (78-98); MEAN PLATELET VOLUME 8.3 FL (7.4-10.4); MONOCYTES # (AUTO) 2.3 X10'3 (0-0.9); MONOCYTES % (AUTO) 20.4 % (2-12); NEUTROPHILS # (AUTO) 6.1 X10'3 (1.8-7.7); PLATELET COUNT 324 X10'3 (140-440); RED BLOOD COUNT 4.17 X10'6 (4.70-6.10); RED CELL DISTRIBUTION WIDTH 16.7 % (11.5-14.5); WHITE BLOOD COUNT 11.1 X10'3 (4.5-11.0)
[2021-03-04 07:04] LABS: ALBUMIN 2.7 G/DL (3.4-5.0); ANION GAP 9 (8-16); BLOOD UREA NITROGEN 16 MG/DL (7-18); BUN/CREATININE RATIO 18.2 (5.4-32.0); CALCIUM 8.2 MG/DL (8.5-10.1); CHLORIDE 101 MMOL/L (99-107); CREATININE 0.88 MG/DL (0.60-1.10); GLUCOSE 165 MG/DL (70-104); POTASSIUM 3.9 MMOL/L (3.5-5.1); SODIUM 135 MMOL/L (135-145); TOTAL CARBON DIOXIDE 25.5 MMOL/L (24-32); eGFR 84 ML/MIN
[2021-03-04] MEDS: magnesium Cl slow-release 64mg tablet PO SCH ×2 (08:00→21:19)
[2021-03-04] MEDS: insulin glargine (Lantus) pen - multi-dose SQ SCH (08:00)
[2021-03-04] MEDS: pantoprazole 40mg Tablet.DR PO SCH (08:48)
[2021-03-04] MEDS: furosemide 40mg/4ml inj IV SCH (08:48)
[2021-03-04] MEDS: aspirin 325mg tablet, delayed-release (Ecotrin) PO SCH (08:48)
[2021-03-04] MEDS: sennosides/docusate sodium tablet PO SCH ×2 (08:49→21:18)
[2021-03-04] MEDS: potassium Cl 20 mEq SR tablet PO SCH ×2 (08:49→21:20)
[2021-03-04] MEDS: amiodarone 200mg tablet PO SCH ×2 (08:49→21:20)
[2021-03-04] MEDS: metoprolol tartrate 12.5mg (1/2 tablet) PO SCH ×2 (08:49→21:19)
[2021-03-04 08:59] LABS: MAGNESIUM 2.2 MG/DL (1.5-2.4)
[2021-03-04] MEDS: HYDROcodone/acetaminophen 10/325mg tab PO PRN ×2 (09:32→18:01)
[2021-03-04] MEDS: insulin Lispro (HumaLOG) vial - multi-dose SQ SCH ×3 (09:42→19:37)
[2021-03-04] MEDS ORDERED: prednisoLONE acetate 1% ophth susp 5ml EACHEYE PRN (10:50)
[2021-03-04 11:10] LABS: TOTAL CELLS COUNTED 100
[2021-03-04 11:13] LABS: ANISOCYTOSIS 1+; PLATELET ESTIMATE NORMAL; TOXIC VACUOLATION FEW
--- NOTE | 2021-03-04 18:15 | NUR ---
Problems reprioritized. Patient report given, questions answered & plan of care reviewed with Danica FARIA.
--- NOTE | 2021-03-04 18:15 | NUR ---
Patient in room PCU 3019. I have received report from BIENVENIDO Chaudhari and had the opportunity to ask questions and assume patient care.
[2021-03-04] MEDS: atorvastatin 10mg tablet PO SCH (21:18)
[2021-03-04] MEDS: sertraline 50mg tablet PO SCH (21:20)
[2021-03-04] MEDS: furosemide 20MG tablet PO SCH (21:20)
[2021-03-05 02:00] VITALS: BP 137/74
[2021-03-05] MEDS: ipratropium/albuterol 3ml nebule IH SCH ×3 (03:00→11:00)
[2021-03-05 06:00] VITALS: BP 124/69
--- NOTE | 2021-03-05 06:10 | NUR ---
Patient in room PCU 3019. I have received report from Danica FARIA and had the opportunity to ask questions and assume patient care.
--- NOTE | 2021-03-05 06:13 | NUR ---
Problems reprioritized. Patient report given, questions answered & plan of care reviewed with BIENVENIDO Chaudhari.
[2021-03-05] MEDS ORDERED: LOP12.5T PO (07:52)
[2021-03-05] MEDS ORDERED: HYDR-3972 PO (07:52)
[2021-03-05] MEDS ORDERED: ASPI-1071 PO (07:52)
[2021-03-05] MEDS ORDERED: ATOR10TA PO (07:52)
[2021-03-05] MEDS ORDERED: AMIO200T67 PO (07:52)
[2021-03-05] MEDS: magnesium Cl slow-release 64mg tablet PO SCH (08:00)
[2021-03-05] MEDS: potassium Cl 20 mEq SR tablet PO SCH (08:00)
[2021-03-05 08:44] LABS: BASOPHILS # (AUTO) 0.1 X10'3 (0-0.2); EOSINOPHILS # (AUTO) 0.2 X10'3 (0-0.9); EOSINOPHILS % (AUTO) 1.9 % (0-6); HEMATOCRIT 34.2 % (42.0-52.0); HEMOGLOBIN 11.4 g/dl (14.0-17.9); LYMPHOCYTES % (AUTO) 17.7 % (21-51); MEAN CORPUSCULAR HGB CONC 33.4 g/dL (33.0-36.5); MEAN PLATELET VOLUME 8.2 FL (7.4-10.4); MONOCYTES # (AUTO) 2.1 X10'3 (0-0.9); NEUTROPHILS # (AUTO) 6.6 X10'3 (1.8-7.7); NEUTROPHILS % (AUTO) 60.4 % (42-75); PLATELET COUNT 374 X10'3 (140-440); RED BLOOD COUNT 4.07 X10'6 (4.70-6.10); RED CELL DISTRIBUTION WIDTH 16.8 % (11.5-14.5)
[2021-03-05 08:57] LABS: ALBUMIN 2.7 G/DL (3.4-5.0); ANION GAP 8 (8-16); BLOOD UREA NITROGEN 17 MG/DL (7-18); BUN/CREATININE RATIO 16.3 (5.4-32.0); CALCIUM 8.5 MG/DL (8.5-10.1); CHLORIDE 100 MMOL/L (99-107); CREATININE 1.04 MG/DL (0.60-1.10); GLUCOSE 138 MG/DL (70-104); POTASSIUM 4.4 MMOL/L (3.5-5.1); SODIUM 134 MMOL/L (135-145); TOTAL CARBON DIOXIDE 25.6 MMOL/L (24-32); eGFR 69 ML/MIN
[2021-03-05] MEDS: aspirin 325mg tablet, delayed-release (Ecotrin) PO SCH (09:11)
[2021-03-05] MEDS: furosemide 20MG tablet PO SCH (09:14)
[2021-03-05] MEDS: amiodarone 200mg tablet PO SCH (09:14)
[2021-03-05] MEDS: metoprolol tartrate 12.5mg (1/2 tablet) PO SCH (09:14)
[2021-03-05] MEDS: pantoprazole 40mg Tablet.DR PO SCH (09:14)
[2021-03-05] MEDS: sennosides/docusate sodium tablet PO SCH (09:14)
[2021-03-05] MEDS: insulin glargine (Lantus) pen - multi-dose SQ SCH (09:18)
[2021-03-05] MEDS: HYDROcodone/acetaminophen 10/325mg tab PO PRN ×2 (09:19→14:54)
[2021-03-05] MEDS: insulin Lispro (HumaLOG) vial - multi-dose SQ SCH ×2 (09:25→14:49)
[2021-03-05 10:10] LABS: MAGNESIUM 2.1 MG/DL (1.5-2.4)
[2021-03-05 10:41] LABS: ANISOCYTOSIS 1+; PLATELET ESTIMATE NORMAL; TOTAL CELLS COUNTED 100
--- NOTE | 2021-03-05 10:53 | NUR ---
O2 Sat at rest on room air:_93_% If below 89%: Recovery O2 Sat at rest on ___LPM:___%:___% via (mask/nasal cannula, etc..) No further documentation is necessary. If O2 Sat did not drop below 89% on room air,ambulate patient on room air. O2 Sat while ambulating on room air:_88_% Recovery O2 Sat while ambulating on __2_LPM:_93_% No further documentation is necessary. If patient does not drop below 89% while ambulating, he/she does not qualify for home O2.
[2021-03-05 15:00] VITALS: BP 137/69
--- NOTE | 2021-03-05 15:55 | NUR ---
Pt DC'd home with . Pt alert and oriented and vitals WNL upon DC. Per Dr. Martines; Pt is stable for DC. Pt's IV removed, canula intact. Tele-box removed and returned to tele-tech. DC paperwork printed out and gone over with Pt. Allowed Pt and to ask questions concerning DC and then answered them. New prescriptions faxed over to [facility] pharmacy in [place]. Pt and stated that hey will make follow up with Dr. Martines in 2 weeks time, Dr. Holliday in 4 weeks time and their PCP in 6 weeks time. Pt educated on . Home health will call Pt's house to make follow up appt. Pt's belongings gathered and sent with Pt. Pt wheeled down to lobby in wheelchair where they left in private vehicle for home.
== END 2021-03-05 15:59 | disposition home health service (06) | DRG 236 ==
LOC: PAS IN 03-01 05:33 → ICU 2S 03-01 10:15 → PCU 3S 03-03 10:53
PROVIDERS: ADMIT Thoracic Surgery (Cardiothoracic Vascular Surgery); ATTEND Thoracic Surgery (Cardiothoracic Vascular Surgery)
PROC: 021009W Bypass Coronary Artery, One Artery from Aorta with Autologous Venous Tissue, Open Approach (ICD-10-PCS; 2021-03-01)
PROC: 06BP4ZZ Excision of Right Saphenous Vein, Percutaneous Endoscopic Approach (ICD-10-PCS; 2021-03-01)
PROC: 0BNP0ZZ Release Left Pleura, Open Approach (ICD-10-PCS; 2021-03-01)
PROC: B24BZZ4 Ultrasonography of Heart with Aorta, Transesophageal (ICD-10-PCS; 2021-03-01)
PROC: 02HV33Z Insertion of Infusion Device into Superior Vena Cava, Percutaneous Approach (ICD-10-PCS; 2021-03-01)
PROC: B548ZZA Ultrasonography of Superior Vena Cava, Guidance (ICD-10-PCS; 2021-03-01)
PROC: 03HY32Z Insertion of Monitoring Device into Upper Artery, Percutaneous Approach (ICD-10-PCS; 2021-03-01)
PROC: B34HZZZ Ultrasonography of Right Upper Extremity Arteries (ICD-10-PCS; 2021-03-01)
PROC: 02100Z9 Bypass Coronary Artery, One Artery from Left Internal Mammary, Open Approach (ICD-10-PCS; principal; 2021-03-01 07:35)
DX: I25.10 Atherosclerotic heart disease of native coronary artery without angina pectoris (principal); K80.10 Calculus of gallbladder with chronic cholecystitis without obstruction; J94.8 Other specified pleural conditions; F17.200 Nicotine dependence, unspecified, uncomplicated; F32.9 Major depressive disorder, single episode, unspecified; F60.9 Personality disorder, unspecified; I10 Essential (primary) hypertension; I48.91 Unspecified atrial fibrillation; J44.9 Chronic obstructive pulmonary disease, unspecified; E66.9 Obesity, unspecified; F32.A Depression, unspecified; Z68.37 Body mass index [BMI] 37.0-37.9, adult; Z88.5 Allergy status to narcotic agent; Z79.899 Other long term (current) drug therapy
CPT/HCPCS: 36415; 36600; 71045; 80048; 80053; 81003; 82803; 82948; 83036; 83735; 84100; 84132; 85007; 85018; 85025; 85610; 85730; 86885; 86900; 86901; 86920; 87081; 93005; 93312; 93325; 94002; 94003; 94060; 94640; 94760; 97110; 97116; 97161; 97530; 97535; A4618; A6258; A6449; A7000; A7048; C1751; C9113; G0378; J0171; J0690; J1100; J1644; J1815; J1885; J1940; J2001; J2060; J2150; J2250; J2270; J2370; J2440; J2704; J2930; J3010; J3370; J3475; J3480; J3490; J7030; J7040; J7050; J7120; P9045